=== PATIENT | male | born 1965 | race Two or more races ===

== ENCOUNTER 2018-12-10 12:45 | Day surgery (SDC) | payer OTHER ==
[~2018-12-10] VITALS: Ht 165.1 cm; Wt 70.3 kg
[2018-12-10] VITALS (9 sets, daily range): BP systolic 131–166; BP diastolic 81–95
[~2018-12-10 12:45] MED LIST: ceFAZolin 1gm IVPB IVPB ONE; celeBREX 200mg Cap **SURGERY PATIENTS ONLY ORAL ONE; oxyCONTIN 20mg tab ORAL ONE
[2018-12-10] MEDS ORDERED: oxyCONTIN 20mg tab ORAL ONE (13:11)
[2018-12-10] MEDS ORDERED: celeBREX 200mg Cap **SURGERY PATIENTS ONLY ORAL ONE (13:11)
--- NOTE | 2018-12-10 13:22 | Anethesia Preoperative Eval ---
Anesthesia Pre-op PMH/ROS General Date of Evaluation: Dec 10, 2018 Anesthesiologist: Adolfo ASA Score: ASA 1 Mallampati Score Class I : Soft palate, uvula, fauces, pillars visible Class II: Soft palate, uvula, fauces visible Class III: Soft palate, base of uvula visible Class IV: Only hard plate visible Mallampati Classification: Class II Surgeon: Ayush Diagnosis: Left shoulder impingment syndrome Surgical Procedure: Left shoulder arthroscopy Anesthesia History: none Family History: no anesthesia problems Allergies: Coded Allergies: No Known Allergies (Unverified , 12/09/18) Medications: see eMAR Patient NPO?: Yes NPO Date: Dec 09, 2018 NPO Time: 22:00 Past Medical History Cardiovascular: Denies: HTN, CAD, DE, valve dz, arrhythmia, other Pulmonary: Denies: asthma, COPD, HELEN, other Gastrointestinal/Genitourinary: Denies: GERD, CRI, ESRD, other Neurologic/Psychiatric: Denies: dementia, CVA, depression/anxiety, TIA, other Endocrine: Denies: DM, hypothyroidism, steroids, other HEENT: Denies: cataract (L), cataract (R), glaucoma, [place] (L), [place] (R), other Hematology/Immune: Denies: anemia, DVT, bleeding disorder, other Musculoskeletal/Integumentary: Denies: OA, RA, DJD, DDD, edema, other PSxH Narrative: Denies Anesthesia Pre-op Phys. Exam Physician Exam see chart Constitutional: NAD Cardiovascular: RRR Respiratory: CTA Airway Exam Mallampati Score: Class II MO: full ROM: full Teeth: intact Anesthesia Pre-op A/P Labs see chart Studies Pre-op Studies: EKG - sr Risk Assessment & Plan Assessment: ASA I Plan: GA with left intersclene nerve block Status Change Before Surgery: No Pre-Antibiotics Drug: Karime Iglesias MD Dec 10, 2018 13:22
[2018-12-10] MEDS ORDERED: Propofol 200mg/20ml IV ONE (13:24)
[2018-12-10] MEDS ORDERED: Midazolam 2mg/2ml Inj ONE (13:24)
[2018-12-10] MEDS ORDERED: Lidocaine 1% MPF 10mg/ml 5ml ONE (13:24)
[2018-12-10] MEDS ORDERED: fentaNYL 100 mcg/2 mL IV ONE (13:24)
[2018-12-10] MEDS ORDERED: Ropivacaine 5mg/ml Vial 30ml INJ ONE (13:25)
[2018-12-10] MEDS ORDERED: Kenalog-40 1ml Vial ONE (13:27)
[2018-12-10] MEDS ORDERED: Ketorolac 30mg Inj ONE (13:27)
[2018-12-10] MEDS ORDERED: Bupivacaine w/Epi 0.25% 30ml Vial INJ ONE (13:27)
[2018-12-10] MEDS ORDERED: NKM (13:30)
[2018-12-10] MEDS ORDERED: LR 1000ml 1,000 ML IVLG SCH (13:43)
[2018-12-10] MEDS ORDERED: fentaNYL 100 mcg/2 mL IV PRN (13:45)
[2018-12-10] MEDS ORDERED: Hydromorphone 0.5mg/0.5ml inj IVP PRN (13:45)
[2018-12-10] MEDS ORDERED: Metoclopramide 10mg/2ml Inj IVP PRN (13:45)
[2018-12-10] MEDS ORDERED: Midazolam 2mg/2ml Inj IVP PRN (13:45)
[2018-12-10] MEDS ORDERED: Ketorolac 30mg Inj IV PRN (13:45)
[2018-12-10] MEDS ORDERED: DiphenhydrAMINE 50mg/ml Inj IVP PRN (13:45)
[2018-12-10] MEDS ORDERED: LORazepam Inj 2mg/ml 1ml IV PRN (13:45)
[2018-12-10] MEDS ORDERED: NS Irrig 1000ml ONE (14:00)
[2018-12-10] MEDS ORDERED: LR 1000ml ONE (14:00)
[2018-12-10] MEDS ORDERED: NS Irrig 4000ml IRRIG ONE ×2 (14:00→14:50)
--- NOTE | 2018-12-10 14:10 | Operative Note - PDOC ---
Operative Note Operative Note Pre-op Diagnosis: left shoulder internal derangement Procedure: see op report Post-op Diagnosis: same as pre-op plus Operative Findings: consistent w/pre-op dx studies Anesthesia: regional Specimen: none Complications: none Condition: stable Estimated Blood Loss: none Implant(s) used?: No Artem Peacock MD Dec 10, 2018 14:10
--- NOTE | 2018-12-10 14:10 | Pre-Procedure Note/Attestation ---
Pre-Procedure Note/Attestation Complete Prior to Procedure Planned Procedure: left Procedure Narrative: shoulder arthroscopy, sad, possible rcr Indications for Procedure Pre-Operative Diagnosis: left shoulder internal derangement Attestation I attest that I discussed the nature of the procedure; its benefits; risks and complications; and alternatives (and the risks and benefits of such alternatives ), prior to the procedure, with the patient (or the patient's legal operations support representative). I attest that, if there was a reasonable possibility of needing a blood transfusion, the patient (or the patient's legal operations support representative) was given the [facility] standardized written summary, pursuant to the [place] Blood Safety Act ([place] Health and Safety Code # 1645, as amended). I attest that I re-evaluated the patient just prior to the surgery and that there has been no change in the patient's H&P, except as documented below: Artem Peacock MD Dec 10, 2018 14:10
--- NOTE | 2018-12-10 14:37 | Immediate Post-Op Evaluation ---
Immediate Post-Op Evalulation Immediate Post-Op Evalulation Procedure: Left shoulder arthroscopy Date of Evaluation: Dec 10, 2018 Time of Evaluation: 15:53 IV Fluids: 700 Blood Products: 0 Estimated Blood Loss: min Urinary Output: 0 Blood Pressure Systolic: 156 Blood Pressure Diastolic: 89 Pulse Rate: 71 Respiratory Rate: 16 O2 Sat by Pulse Oximetry: 99 Temperature (Fahrenheit): 97.6 Pain Score (1-10): 0 Nausea: No Vomiting: No Complications 0 Patient Status: awake, reacts, patent, none Hydration Status: adequate Drug: Ancef 1g Given Within 1 Hr of Incision: Yes Time Given: 14:15 Karime Carlton MD Dec 10, 2018 14:37
[2018-12-10] MEDS ORDERED: Hydrogen Peroxide 473ml Bottle TOPIC ONE (15:31)
--- NOTE | 2018-12-10 15:52 | 48 Hour Post Anesthesia Eval ---
Post Anesthesia Evaluation Procedure: Left shoulder arthroscopy Date of Evaluation: Dec 10, 2018 Airway: patent Nausea: No Vomiting: No Pain Intensity: 0 Hydration Status: adequate Cardiopulmonary Status: at baseline Mental Status/LOC: patient returned to baseline Post-Anesthesia Complications: 0 Follow-up care needed: ready to discharge Karime Carlton MD Dec 10, 2018 15:52
[2018-12-10] MEDS ORDERED: D5 1/2NS 1,000 ML IV SCH (20:18)
[2018-12-10] MEDS ORDERED: HYDROcodone/Acetamin 5/325 tab ORAL PRN (20:18)
[2018-12-10] MEDS ORDERED: HYDROmorphone 1mg/ml Carpuject SUBQ PRN (20:18)
[2018-12-10] MEDS ORDERED: Tylenol #3 tab (300mg/30mg) ORAL PRN (20:19)
--- NOTE | 2018-12-11 00:15 | Operative Note - Dictated ---
DATE OF OPERATION: 12/10/2018 PREOPERATIVE DIAGNOSIS: Left shoulder internal derangement, possible rotator cuff tear. POSTOPERATIVE DIAGNOSIS: Left shoulder internal derangement, possible rotator cuff tear. PROCEDURE: 1. Left shoulder diagnostic arthroscopy, extensive intra-articular debridement. 2. Left shoulder subacromial decompression bursectomy. 3. Left shoulder rotator cuff tear. SURGEON: Artem Peacock M.D. ANESTHESIA: Interscalene with general. INDICATION FOR PROCEDURE: The patient is a pleasant gentleman, who has had progressive left shoulder pain. He had failed conservative treatment. He had shoulder rotator cuff tear and elected to undergo left shoulder rotator cuff repair. Risks, limitations, expectations, and complications of procedure were discussed in detail. All questions addressed. DESCRIPTION OF PROCEDURE: After informed consent was obtained, the patient was brought to the operating room. The patient was placed on general anesthesia with interscalene block. The patient was then carefully placed in the beach chair position. Left shoulder was prepped and draped in a sterile manner. Time-out was performed. A posterolateral stab incision was then made. Trocar was introduced into the glenohumeral joint. There was no significant chondral damage. The anterior labrum was intact along with the subscap and the superior labrum. The undersurface of the supraspinatus completely detached from the greater tuberosity supraspinatus. Shaver was then placed. We debrided tissue lateral to the articular margin. Once that was done, the camera was placed in subacromial space. Complete bursectomy was performed. Acromioplasty was started from lateral to medial and completed from posterior to anterior. Once that was done, two anchor was then placed and cinched down the rotator cuff. Once that was completed, the rotator cuff moved as a unit. The patient was then awoken and taken to recovery room with stable vital signs. ESTIMATED BLOOD LOSS: None. COMPLICATIONS: None. SPECIMENS: None. Artem Peacock M.D. DR: Wili JOB#: [id number] CC: LARRY
== END 2018-12-10 17:20 | disposition home or self-care (01) ==
LOC: SUR 12:45
DX: M75.102 Unspecified rotator cuff tear or rupture of left shoulder, not specified as traumatic (principal)
CPT/HCPCS: 29826; 29827; J0690; J2250; J2405; J2704; J2795; J3010